=== PATIENT | male | born 1990 | race Caucasian/White ===

== ENCOUNTER 2017-08-22 16:33 | Emergency (ER) | payer SELFPAY ==
[~2017-08-22] VITALS: Ht 170.2 cm; Wt 86.0 kg
[2017-08-22 18:48] VITALS: BP 138/78
== END 2017-08-22 18:49 | disposition home or self-care (01) ==
LOC: EMS 16:36
DX: S93.402A Sprain of unspecified ligament of left ankle, initial encounter (principal); R03.0 Elevated blood-pressure reading, without diagnosis of hypertension; X50.9XXA Other and unspecified overexertion or strenuous movements or postures, initial encounter; Y93.89 Activity, other specified; Y92.828 Other wilderness area as the place of occurrence of the external cause; Y99.8 Other external cause status
CPT/HCPCS: 29515; 99284